=== PATIENT | male | born 1990 | race American Indian/Alaskan Native ===

== ENCOUNTER 2020-02-20 17:04 | Emergency (ER) | payer SELFPAY ==
[2020-02-20] MEDS ORDERED: ASPIRIN 325 MG TAB PO ONE (18:02)
--- NOTE | 2020-02-20 18:07 | Emergency Department Report ---
Blank Doc - Documentation Documentation: 29-year-old male that presents with chest pain and SOB. Describes CP as heavi ness and tightness. This initial assessment/diagnostic orders/clinical plan/treatment(s) is/are subject to change based on patient's health status, clinical progression and re- assessment by fellow clinical providers in the ED. Further treatment and workup at subsequent clinical providers discretion. Patient/guardians urged not to elope from the ED as their condition may be serious if not clinically assessed and managed. Initial orders include: 1- Patient sent to [facility] for further evaluation and treatment 2- cardiac workup
[2020-02-20 18:09] VITALS: BP 146/59
--- NOTE | 2020-02-20 18:35 | XRay Report ---
CHEST 2 VIEWS INDICATION / CLINICAL INFORMATION: Chest Pain. FINDINGS: SUPPORT DEVICES: None. HEART / MEDIASTINUM: No significant abnormality. LUNGS / PLEURA: No significant pulmonary or pleural abnormality. No pneumothorax. ADDITIONAL FINDINGS: No significant additional findings. IMPRESSION: 1. No acute findings. Signer Name: Sadi Vigil MD Signed: 02/20/2020 6:30 PM Workstation Name: [id number]
[2020-02-20 19:28] LABS: Basophils % (Auto) 0.5 % (0.0-1.8); Eosinophils % (Auto) 0.5 % (0.0-4.3); Hematocrit 42.9 % (35.5-45.6); Hemoglobin 13.9 gm/dl (11.8-15.2); Lymphocytes # (Auto) 1.9 K/mm3 (1.2-5.4); Lymphocytes % (Auto) 24.3 % (13.4-35.0); Mean Corpuscular HGB Conc 32 % (32-34); Mean Corpuscular Volume 83 fl (84-94); Monocytes # (Auto) 0.7 K/mm3 (0.0-0.8); Monocytes % (Auto) 9.1 % (0.0-7.3); Platelet Count 234 K/mm3 (140-440); Red Cell Distribution Width 14.4 % (13.2-15.2)
[2020-02-20 19:51] LABS: Blood Urea Nitrogen 12 mg/dL (9-20); Calcium 9.4 mg/dL (8.4-10.2); Hemolysis Index 7
[2020-02-20 19:56] LABS: BUN/Creatinine Ratio 17
[2020-02-20 20:02] LABS: Partial Thromboplastin Time 27.5 Sec. (24.2-36.6)
[2020-02-20] MEDS ORDERED: IBUPROFEN 800 MG TAB PO ONE (21:28)
[2020-02-20] MEDS ORDERED: LIDOCAINE VISCOUS 2% 15 ML ORAL LIQD PO ONE (21:28)
[2020-02-20] MEDS ORDERED: ALUM-MAG HYDROXIDE-SIMETHICONE 200-200-20MG/5ML ORAL LIQD 30 ML PO ONE (21:28)
--- NOTE | 2020-02-20 22:17 | Emergency Department Report ---
ED Chest Pain HPI - General Chief Complaint: Chest Pain Stated Complaint: CP Time Seen by Provider: 02/20/20 18:06 Source: patient Mode of arrival: Ambulatory Limitations: No Limitations - History of Present Illness Initial Comments: Patient is a 29-year-old -[place] male smoker who presents for epigastric pain 4/10 described as pressure burning times past 3 days. Symptoms are exacerbated by p.o. intake and recumbent position. Symptoms are relieved by rest and sitting upright. Patient states of burning sensation in throat and esophagus. Patient denies diagnosis of GERD is a daily smoker, occasional EtOH. Patient denies nausea vomiting no dizziness, diaphoresis, back pain, dizziness, or lightheadedness. Patient denies family history of cardiac disease. Patient is tolerating p.o. intake at this time. Chest pain described at 3/10 at this time. MD Complaint: chest pain Severity scale (0 -10): 3 - Related Data Previous Rx's Medication Instructions Recorded Last Taken Type Famotidine [Pepcid] 20 mg PO BID #30 tablet 02/20/20 Unknown Rx Allergies Allergy/AdvReac Type Severity Reaction Status Date / Time No Known Allergies Allergy Verified 02/20/20 21:56 Heart Score - HEART Score History: Slightly suspicious EKG: Normal Age: < 45 Risk factors: No known risk factors Troponin: < normal limit HEART Score: 0 ED Review of Systems ROS: Stated complaint: CP Other details as noted in HPI Constitutional: denies: chills, fever Eyes: denies: eye pain, eye discharge, vision change ENT: denies: ear pain, throat pain Respiratory: denies: cough, shortness of breath, wheezing Cardiovascular: chest pain (epigastric pain ). denies: palpitations Endocrine: no symptoms reported Gastrointestinal: abdominal pain (epigastric ). denies: nausea, vomiting, diarrhea Genitourinary: denies: urgency, dysuria, frequency, hematuria Musculoskeletal: denies: back pain, joint swelling, arthralgia Skin: denies: rash, lesions Neurological: denies: headache, weakness, paresthesias Psychiatric: denies: anxiety, depression Hematological/Lymphatic: as per HPI ED Past Medical Hx - Past Medical History Previous Medical History?: Yes Additional medical history: Metal Be in rt femur - Surgical History Past Surgical History?: Yes Additional Surgical History: Metal be in rt femur - Social History Smoking Status: Current Every Day Smoker Substance Use Type: Alcohol - Medications Home Medications: Home Medications Medication Instructions Recorded Confirmed Last Taken Type Famotidine [Pepcid] 20 mg PO BID #30 tablet 02/20/20 Unknown Rx ED Physical Exam - General Limitations: No Limitations General appearance: alert, in no apparent distress - Head Head exam: Present: atraumatic, normocephalic - Eye Eye exam: Present: normal appearance, PERRL, EOMI Pupils: Present: normal accommodation - ENT ENT exam: Present: normal orophraynx, mucous membranes moist - Neck Neck exam: Present: normal inspection, full ROM. Absent: tenderness - Respiratory Respiratory exam: Present: normal lung sounds bilaterally. Absent: respiratory distress, wheezes, stridor, chest wall tenderness - Cardiovascular Cardiovascular Exam: Present: regular rate, normal rhythm, normal heart sounds. Absent: systolic murmur, diastolic murmur, rubs, gallop - GI/Abdominal GI/Abdominal exam: Present: soft, tenderness (tdetender tenderness to deep palpation), normal bowel sounds. Absent: distended, guarding, rebound, rigid, bruit, hernia - Rectal Rectal exam: Present: deferred - Extremities Exam Extremities exam: Present: normal inspection, full ROM. Absent: tenderness - Back Exam Back exam: Present: normal inspection, full ROM. Absent: tenderness, CVA tenderness (R), CVA tenderness (L) - Neurological Exam Neurological exam: Present: alert, oriented X3, CN II-XII intact, normal gait - Psychiatric Psychiatric exam: Present: normal affect, normal mood - Skin Skin exam: Present: warm, dry, intact, normal color. Absent: rash ED Course Vital Signs 02/20/20 18:08 Temperature 98.9 F Pulse Rate 77 Respiratory 18 Rate Blood Pressure 146/59 [Left] O2 Sat by Pulse 98 Oximetry MALIK score - Malik Score Age > 65: (0) No Aspirin use within the Past 7 Days: (0) No 3 or more CAD Risk Factors: (0) No 2 or more Angina events in past 24 hrs: (0) No Known CAD with more than 50% Stenosis: (0) No Elevated Cardiac Markers: (0) No ST Deviation Greater than 0.5mm: (0) No MALIK Score: 0 ED Medical Decision Making - Lab Data Result diagrams: 02/20/20 19:20 02/20/20 19:20 Labs 02/20/20 02/20/20 02/20/20 19:20 19:20 19:20 WBC 7.9 RBC 5.20 H Hgb 13.9 Hct 42.9 MCV 83 L MCH 27 L MCHC 32 RDW 14.4 Plt Count 234 Lymph % (Auto) 24.3 O'Brien % (Auto) 9.1 H Eos % (Auto) 0.5 Baso % (Auto) 0.5 Lymph # (Auto) 1.9 O'Brien # (Auto) 0.7 Eos # (Auto) 0.0 Baso # (Auto) 0.0 Seg Neutrophils % 65.6 Seg Neutrophils # 5.2 PT 13.3 INR 1.00 APTT 27.5 Sodium 139 Potassium 3.9 Chloride 99.8 Carbon Dioxide 29 Anion Gap 14 BUN 12 Creatinine 0.7 L Estimated GFR > 60 BUN/Creatinine Ratio 17 Glucose 93 Calcium 9.4 Troponin T < 0.010 - EKG Data EKG shows normal: sinus rhythm Rate: normal - EKG Data When compared to previous EKG there are: other (no previous ekg in file ) Interpretation: normal EKG (normal ekg no STEMI , ekg interp be ed attending ) - Radiology Data Radiology results: report reviewed, image reviewed Findings Reporting MD: Sadi Vigil Dictation Time: February 20, 2020 17:30 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 FINDINGS: SUPPORT DEVICES: None. HEART / MEDIASTINUM: No significant abnormality. LUNGS / PLEURA: No significant pulmonary or pleural abnormality. No pneumothorax. ADDITIONAL FINDINGS: No significant additional findings. IMPRESSION: 1. No acute findings. Signer Name: Sadi Vigil MD Signed: 02/20/2020 5:30 PM Workstation Name: [id number] - Medical Decision Making EKG normal sinus rhythm, chest x-ray and no infiltrate no opacities, troponin 0.01, heart score 0, chest pain relieved to 0/10 at this time, pain is relieved with GI cocktail given in ED. Plan pain Pepcid short-term, stop smoking, follow-up with primary care doctor in 2 to 3 days. Patient verbalized agreement and understanding with discharge plan. Patient DC'd home in stable condition at this time. Critical care attestation.: If time is entered above; I have spent that time in minutes in the direct care of this critically ill patient, excluding procedure time. ED Disposition Clinical Impression: Chest pain Qualifiers: Chest pain type: unspecified Qualified Code(s): R07.9 - Chest pain, unspecified Disposition: TO HOME OR SELFCARE Is pt being admited?: No Does the pt Need Aspirin: No Condition: Stable Instructions: Chest Pain (ED), Gastroesophageal Reflux Disease (ED) Prescriptions: Famotidine [Pepcid] 20 mg PO BID #30 tablet Referrals: WALESKA NGUYỄN MD [Staff Physician] - 3-5 Days Forms: Work/School Release Form(ED) Time of Disposition: 22:34
== END 2020-02-20 22:14 | disposition home or self-care (01) ==
LOC: ED 17:04
DX: R07.89 Other chest pain (principal); F17.200 Nicotine dependence, unspecified, uncomplicated
CPT/HCPCS: 36415; 71046; 80048; 84484; 85025; 85610; 85730; 93005